=== PATIENT | male | born 1950 | race Caucasian/White ===

== ENCOUNTER → 2017-02-03 | Outpatient (CLI) | payer OTHER ==
[~2017-02-03] MED LIST: BUPIVACAINE MPF 0.25% 10 ML VIAL. ONE; IV NORMAL SALINE 250ML 250 ML ONE; LIDOCAINE 1% PF 30 ML VIAL. ONE; MIDAZOLAM HCL 2 MG/2 ML VIAL. ONE; fentaNYL PF 100 MCG/2 ML VIAL ONE; methylPREDNISolone ACETATE 40 MG/ML VIAL. ONE
== END | disposition home or self-care (01) ==
LOC: SURG 12:59
PROVIDERS: ATTEND Anesthesiology Pain Medicine
DX: M47.816 Spondylosis without myelopathy or radiculopathy, lumbar region (principal); E11.9 Type 2 diabetes mellitus without complications; K21.9 Gastro-esophageal reflux disease without esophagitis; Z98.890 Other specified postprocedural states
CPT/HCPCS: 64635; 64636; 82947; J1030; J2001; J2250; J3010; J3490; J7050

== ENCOUNTER → 2017-02-24 | Outpatient (CLI) | payer OTHER ==
[~2017-02-24] MED LIST changes: -IV NORMAL SALINE 250ML 250 ML ONE; +IV RINGERS SOLUTION,LACTATED 1,000 ML IV ONE; -MIDAZOLAM HCL 2 MG/2 ML VIAL. ONE; +MIDAZOLAM HCL PF 2 MG/2 ML VIAL. ONE; -fentaNYL PF 100 MCG/2 ML VIAL ONE
== END | disposition home or self-care (01) ==
LOC: SURG 12:33
PROVIDERS: ATTEND Anesthesiology Pain Medicine
DX: M47.816 Spondylosis without myelopathy or radiculopathy, lumbar region (principal)
CPT/HCPCS: 64635; 64636; 82947; J1030; J2001; J2250; J3010; J3490; J7120; 99152

== ENCOUNTER → 2018-02-02 | Outpatient (CLI) | payer OTHER ==
[~2018-02-02] MED LIST changes: -BUPIVACAINE MPF 0.25% 10 ML VIAL. ONE; +BUPIVACAINE MPF 0.5% 30 ML VIAL. ONE; +IOHEXOL 300 MG/ML 50 ML VIAL. ONE; -IV RINGERS SOLUTION,LACTATED 1,000 ML IV ONE; -MIDAZOLAM HCL PF 2 MG/2 ML VIAL. ONE
== END | disposition home or self-care (01) ==
LOC: SURG 08:32
PROVIDERS: ATTEND Anesthesiology Pain Medicine
DX: M17.0 Bilateral primary osteoarthritis of knee (principal); E11.9 Type 2 diabetes mellitus without complications; Z87.01 Personal history of pneumonia (recurrent); M47.816 Spondylosis without myelopathy or radiculopathy, lumbar region; Z79.899 Other long term (current) drug therapy; Z90.49 Acquired absence of other specified parts of digestive tract; Z79.84 Long term (current) use of oral hypoglycemic drugs
CPT/HCPCS: 20610; 77002; J1030; J2001; J3490; 20611; Q9967

== ENCOUNTER → 2018-02-09 | Outpatient (CLI) | payer OTHER ==
--- NOTE | 2018-02-09 13:39 | RAD ---
EXAM: Bilateral knees, 3 views. HISTORY: Pain. COMPARISON: None. FINDINGS: 3 views of the bilateral knees are obtained. There is medial compartment joint space narrowing with subchondral sclerosis and marginal spurring involving the left knee. There is mild bilateral lateral and right medial compartment and bilateral patellofemoral compartment spurring. There is no fracture, dislocation or subluxation. There is no significant joint effusion. There may be left genu varus. IMPRESSION: 1. Moderate left medial and mild right medial and bilateral lateral and patellofemoral compartment osteoarthritis. 2. No acute osseous finding. Electronically signed by: Felicitas Recio MD (02/09/2018 1:35 PM) [id number]
--- NOTE | 2018-02-09 16:01 | RAD ---
Pelvis with both hips, 3 views, 02/09/2018: HISTORY: Hip pain No fracture or dislocation is identified. The hip joint spaces are fairly well preserved with only minimal marginal spurring. There is a small degenerative type cyst along the left acetabular roof laterally. There are small sclerotic foci in the right femoral neck and at the level of the right lesser trochanter. IMPRESSION: 1. No acute bony abnormality is detected. 2. Sclerotic foci in the proximal right femur are most likely bone islands. Blastic osseous metastatic disease cannot be excluded. Electronically signed by: Pablo Leal MD (02/09/2018 3:57 PM) [facility]
== END | disposition home or self-care (01) ==
LOC: DXRAD 10:35
PROVIDERS: ATTEND Anesthesiology Pain Medicine
DX: M17.0 Bilateral primary osteoarthritis of knee (principal); E11.9 Type 2 diabetes mellitus without complications; K21.9 Gastro-esophageal reflux disease without esophagitis; Z79.84 Long term (current) use of oral hypoglycemic drugs; Z79.899 Other long term (current) drug therapy; Z90.49 Acquired absence of other specified parts of digestive tract
CPT/HCPCS: 73521; 73562

== ENCOUNTER → 2018-03-09 | Outpatient (CLI) | payer OTHER ==
[~2018-03-09] MED LIST changes: +ALBU8.5H8 INH; +ASCO500T3 PO; -BUPIVACAINE MPF 0.5% 30 ML VIAL. ONE; +CYPR4TAB31 PO; +DICL100G18 TP; +FERR325T14 PO; +GABA-586 PO; -IOHEXOL 300 MG/ML 50 ML VIAL. ONE; +LEVO500T59 PO; -LIDOCAINE 1% PF 30 ML VIAL. ONE; +METF500T16 PO; +MOME45OI2 TP; +OCTR100D IJ; +OMEP40CA5 PO; +PRAM15FO2 TP; +TAMS0.4C2 PO; +TRAM50TA PO; +[UNRECOGNIZED DRUG - CODE] SQ; -methylPREDNISolone ACETATE 40 MG/ML VIAL. ONE
== END | disposition home or self-care (01) ==
LOC: SURG 13:33
PROVIDERS: ATTEND Anesthesiology Pain Medicine
DX: M25.561 Pain in right knee (principal); M25.562 Pain in left knee; M54.5 Low back pain
CPT/HCPCS: 99214

== ENCOUNTER 2018-03-28 10:06 | Inpatient (IN) | payer MEDICARE, OTHER ==
[~2018-03-28] VITALS: Ht 182.9 cm; Wt 100.2 kg
[2018-03-28 12:35] VITALS: BP 109/62
[2018-03-28 15:00] VITALS: BP 121/67
[2018-03-28] MEDS: ACETAMINOPHEN 325 MG TABLET PO PRN ×2 (16:13→21:28)
[2018-03-28] MEDS ORDERED: ALBUTEROL SULFATE 8GM INHALER. INH PRN (17:00)
[2018-03-28] MEDS ORDERED: LANREOTIDE SQ SCH (17:00)
--- NOTE | 2018-03-28 17:06 | HP ---
ADMIT DATE: 03/28/2018 HISTORY OF PRESENT ILLNESS: The patient is a 67-year-old male patient who was seen at the Emergency Room of [facility] where he was diagnosed with community-acquired pneumonia, however, they have no beds available and he was admitted directly to our hospital to continue treatment with IV antibiotic. On questioning him, he stated that he has been feeling weak and tired for the last 2 weeks. 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 He also complained of cough with phlegm. He had had fever and shortness of breath. He was evaluated in the Emergency Room of [facility] where apparently he was found to be febrile and his chest x-ray showed that lungs and pleura showed ill-defined heterogenous and somewhat confluent opacity in the perihilar right mid lung zone, minimal heterogenous opacities in the infrahilar right lung, lungs otherwise are essentially clear. There is asymmetric prominence of the right hilum that could relate to lymphadenopathy or mass. No pleural effusion or pneumothorax. Heart and mediastinum, the cardiomediastinal silhouette is within normal limits in size and configuration and grossly unchanged allowing for difference in technique and the patient positioning. From prior studies, bones showed no osseous abnormality. He was given a dose of IV levofloxacin, given IV fluid and was transferred to our facility to continue with inpatient antibiotic therapy. PAST MEDICAL HISTORY: Significant for type 2 diabetes mellitus for which he is on metformin. 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 Other medical problems include splenic artery aneurysm, partial small obstruction. 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 PAST SURGICAL HISTORY: Significant for appendectomy, cholecystectomy, squamous cell carcinoma resections in the right little finger, has also esophagogastroduodenoscopy and colonoscopy. ALLERGIES: He has no known drug allergies. MEDICATIONS: He is currently on following medications: He is on Somatuline 120 mg 0.5 mL intramuscular monthly. He is on Meloxicam 15 mg once a day, metformin 500 mg 1 tablet twice a day with meals. He is on octreotide 100 mcg/mL injection twice a day. He is on Prilosec 40 mg once a day and simvastatin (Lipitor) 20 mg intramuscular injection. He is on tamsulosin for Flomax 0.4 mg at bedtime and Ultra comfort insulin syringe. He is on Voltaren 1% gel applied topically 4 times a day. FAMILY HISTORY: Significant for hypertension and coronary artery disease in his father who at age of 74 because of stroke. His mother at the age of 67 because of breast cancer. He has 1 younger brother who has glaucoma. His maternal aunt has ovarian cancer. SOCIAL HISTORY: He apparently is , has a son and a daughter. He is a former smoker, quit in 1979. He used to smoke cigars, cigarettes and pipes and even chewed tobacco. He quit drinking alcohol years ago. Does not use any drugs. REVIEW OF SYSTEMS: The patient denied any blurring of vision, cataract, glaucoma or macular degeneration. Denied any earache, tinnitus or sensorineural deafness. Denied any nosebleeds, stuffy nose or postnasal drip. Denied any sore throat, sore tongue, toothache, hoarseness of voice or difficulty swallowing. Denied any nausea or vomiting. Did complain of recurrent bouts of diarrhea because of carcinoid syndrome. He denied any hematemesis, melena or hematochezia. Did complain of polyuria, but denied any dysuria or hematuria. He did complain of nocturia once or twice. Did complain of chest pain, shortness of breath, and cough, but denied any orthopnea or paroxysmal nocturnal dyspnea. He did complain of fever. Denied any dizziness, lightheadedness, or vertigo. PHYSICAL EXAMINATION: GENERAL: When I examined him, he looked somewhat pale, but not jaundiced or cyanosed. No lymphadenopathy, no thyromegaly. No jugular venous distension. No lower limb edema. VITAL SIGNS: His heart rate on arrival to [facility] was 96 beats per minute. Blood pressure was 109/62, temperature was 98.2, respiratory rate was 18 and oxygen saturation was 93%. HEAD, EYES, EARS, NOSE AND THROAT: Showed normocephalic, atraumatic. NECK: Supple. HEART: Showed normal first and second heart sounds. No gallop, rub or murmur. CHEST: Clear to auscultation. No crepitation or rhonchi. ABDOMEN: Distended, soft, nontender. No guarding or rigidity. No organomegaly. All hernial orifices intact. Bowel sounds normal. NEUROLOGIC: He was awake, alert, responding appropriately. All his cranial nerves are intact. EXTREMITIES: He moves extremities without difficulty. He normally ambulates without difficulty, although has been complaining of weakness and has fallen twice, one last one Monday and one early this morning. Apparently, on arrival to [facility] in [place], temperature was up to 38 degrees centigrade. LABORATORY AND DIAGNOSTIC DATA: His lab work done at [facility] showed that his white cell count was 3790, his hemoglobin was 7.7, hematocrit was 25, MCV was 84 and platelet count of 168,000, manual differential showed 85% polymorphs, 8% lymphocytes and 5% monocytes. Serum sodium was 132, potassium 3.8, chloride 104, bicarbonate 19, anion gap of 10, calcium was 8.4, glucose 152. His total protein was 11.3, albumin was 3.5. His total bilirubin, AST, ALT, alkaline phosphatase were normal. His serum creatinine was 1.4, estimated GFR was 51 mL per minute. His lipase was 57, lactic acid was 2.2. Beta natriuretic peptide was 193. His troponin was less than 0.017. The influenza A and B were negative. His fecal occult blood was negative and his chest x-ray showed that he has right perihilar, right infrahilar airspace disease with possible early consolidation. Findings are likely pneumonia, consolidation adults must be followed to complete radiographic resolution to exclude underlying malignancy. PLAN: Continue with all his medication. Continue with IV Levaquin. We will monitor his labs and we will send urine for legionella/pneumococcal antigen and we will contact Dr. Cruz's office as he apparently is scheduled for some form of diagnostic test this Monday. VIDHYA WHITE MD DR: JENNIFER/joyce JOB#: [id number] / [id number]
[2018-03-28] MEDS ORDERED: OCTR100D IJ (17:27)
[2018-03-28] MEDS ORDERED: DICL100G18 TP (17:27)
[2018-03-28] MEDS ORDERED: ALBU8.5H8 INH (17:27)
[2018-03-28] MEDS ORDERED: [UNRECOGNIZED DRUG - CODE] SQ (17:27)
[2018-03-28] MEDS ORDERED: OMEP40CA5 PO (17:27)
[2018-03-28] MEDS ORDERED: METF500T16 PO (17:27)
[2018-03-28] MEDS ORDERED: PRAM15FO2 TP (17:27)
[2018-03-28] MEDS ORDERED: TAMS0.4C2 PO (17:27)
[2018-03-28] MEDS ORDERED: MOME45OI2 TP (17:27)
[2018-03-28] MEDS ORDERED: CYPR4TAB31 PO (17:27)
[2018-03-28] MEDS ORDERED: GABA-586 PO (17:27)
[2018-03-28] MEDS ORDERED: TRAM50TA PO (17:53)
[2018-03-28] MEDS ORDERED: traMADol 50 MG TABLET PO PRN (18:00)
[2018-03-28 19:03] VITALS: BP 111/67
[2018-03-28 20:00] VITALS: BP 122/55
[2018-03-28] MEDS: PRAMOXINE 1% RECTAL FOAM 15GM CAN. TP SCH (21:00)
[2018-03-28] MEDS ORDERED: OCTREOTIDE ACETATE IJ SCH (21:00)
[2018-03-28] MEDS: CYPROHEPTADINE 4 MG TABLET. PO SCH (21:21)
[2018-03-28] MEDS: TAMSULOSIN 0.4 MG CAP.ER.24H. PO SCH (21:21)
[2018-03-28] MEDS: GABAPENTIN 300 MG CAPSULE. PO SCH (21:21)
[2018-03-28] MEDS: TRIAMCINOLONE ACETONIDE 0.1% TOPICAL CREAM 15GM TUBE. TP SCH (21:22)
[2018-03-28] MEDS: DICLOFENAC SODIUM 1% TOPICAL GEL 100GM TUBE. TP SCH (21:23)
[2018-03-28 23:00] VITALS: BP 114/63
[2018-03-29 03:00] VITALS: BP 136/63
[2018-03-29] MEDS: OCTREOTIDE 100 MCG/ML VIAL SQ SCH ×2 (05:05→16:54)
[2018-03-29] MEDS: ACETAMINOPHEN 325 MG TABLET PO PRN ×2 (05:11→14:25)
[2018-03-29 06:13] LABS: HEMATOCRIT 23.2 % (39.0-53.0); HEMOGLOBIN 7.6 g/dL (13.0-17.5); RED BLOOD COUNT 2.86 x10^6/uL (4.30-5.70); RED CELL DISTRIBUTION WIDTH 17.7 % (11.5-14.5); WHITE BLOOD COUNT 7.4 x10^3/uL (4.0-11.0)
[2018-03-29 06:23] LABS: ALBUMIN 1.8 g/dL (3.4-5.0); ALBUMIN/GLOBULIN RATIO 0.2 (1.0-1.7); CREATININE 1.6 mg/dL (0.7-1.3); GFR 43.3; POTASSIUM 3.9 mmol/L (3.5-5.1); TOTAL BILIRUBIN 0.6 mg/dL (0.2-1.0); TOTAL PROTEIN 10.4 g/dL (6.4-8.2)
[2018-03-29] MEDS: PANTOPRAZOLE 40 MG TABLET. PO SCH (07:20)
[2018-03-29] MEDS: metFORMIN 500 MG TABLET PO SCH ×2 (08:10→16:53)
[2018-03-29] MEDS: TAMSULOSIN 0.4 MG CAP.ER.24H. PO SCH ×2 (08:33→21:24)
[2018-03-29] MEDS: DICLOFENAC SODIUM 1% TOPICAL GEL 100GM TUBE. TP SCH ×3 (08:33→21:00)
[2018-03-29] MEDS: CYPROHEPTADINE 4 MG TABLET. PO SCH ×2 (08:33→21:24)
[2018-03-29] MEDS: GABAPENTIN 300 MG CAPSULE. PO SCH ×3 (08:33→21:24)
[2018-03-29] MEDS: TRIAMCINOLONE ACETONIDE 0.1% TOPICAL CREAM 15GM TUBE. TP SCH ×3 (08:34→21:24)
[2018-03-29] MEDS: PRAMOXINE 1% RECTAL FOAM 15GM CAN. TP SCH ×2 (08:34→21:00)
[2018-03-29 10:47] VITALS: BP 157/66
[2018-03-29] MEDS: IV NORMAL SALINE 1,000ML 1,000 ML IV SCH ×2 (11:17→21:37)
[2018-03-29 14:27] VITALS: BP 132/56
[2018-03-29] MEDS ORDERED: IRON SUCROSE COMPLEX 200 MG in IV NORMAL SALINE 100ML 100 ML IV ONE (17:00)
[2018-03-29 18:32] LABS: HEMATOCRIT 24.9 % (39.0-53.0); HEMOGLOBIN 8.1 g/dL (13.0-17.5)
[2018-03-29 18:36] VITALS: BP 130/81
[2018-03-29 18:38] LABS: CALCIUM 8.4 mg/dL (8.5-10.1); CREATININE 1.6 mg/dL (0.7-1.3); GFR 43.3; POTASSIUM 3.7 mmol/L (3.5-5.1)
--- NOTE | 2018-03-29 19:42 | PN ---
DATE: 03/29/2018 SUBJECTIVE: The patient is sitting on the edge of the bed comfortably in no apparent distress. He stated he continued to have cough, but generally feeling much better today than yesterday. His white cell count is 7400; however, his hemoglobin and hematocrit are low. In fact, yesterday, it was 7.7 and the hematocrit was 25, MCV was 84 and today, the MCV was 81. His chemistry unfortunately showed that he has hyponatremia, sodium came down from 130 to 127. His creatinine also has risen slightly from 1.4-1.6. PHYSICAL EXAMINATION: GENERAL: When I examined him, he looked pale, but no jaundice or cyanosis. No lymphadenopathy. No thyromegaly. No jugular venous distension. No lower limb edema. VITAL SIGNS: His heart rate was 81, blood pressure was 136/63, temperature was 99.8, respiratory rate was 18 and oxygen saturation was 97%. HEAD, EYES, EARS, NOSE AND THROAT: Showed normocephalic and atraumatic. NECK: Supple. HEART: Showed normal first and second heart sounds with no gallop, rub or murmur. CHEST: Shows central trachea, equal bilateral expansion, air entry, vesicular sounds with crepitation, more on the right side. I could not appreciate any rhonchi. ABDOMEN: Distended, soft, and nontender. No guarding or rigidity. No organomegaly. All hernial orifices intact. Bowel sounds normal. NEUROLOGIC: He was awake, alert, and responding appropriately. Cranial nerves intact. He moves extremities without difficulty. INS AND OUTS: His intake over the last 24 hours was 1600, no output was recorded. LABORATORY DATA: As of this morning, his serum sodium was 127, potassium 3.9, chloride 97, bicarbonate 23, anion gap of 7, BUN 18, creatinine 1.6, estimated GFR was 43 mL per minute. His glucose was 99, calcium was 8. Total bilirubin, AST, ALT, alkaline phosphatase were normal. His total protein was 10.4 and albumin was 1.8. His white cell count was 7400, hemoglobin 7.6, hematocrit 23.2, MCV 81 and platelet count of 155,000. ASSESSMENT: 1. Community-acquired pneumonia for which he is on IV levofloxacin 750 mg IV daily. 2. Hyponatremia, worsening. His sodium is down from 130-127, normochromic normocytic anemia with a hemoglobin of 7.7 and hematocrit 24. However, his white cell count and platelets are normal. The patient is known to have type 2 diabetes mellitus for which he is on metformin. He is also known to have carcinoid tumor diagnosed after he has been appendectomy. 3. Splenic artery aneurysm. 4. Partial small-bowel obstruction. 5. Squamous cell carcinoma of his right finger, status post Mohs surgery. PLAN: My plan is to start him on IV fluid in the form of normal saline at 100 mL per hour and monitor his serum sodium. We will continue with IV antibiotic and continue with all his other medications. I would also check his all hematinics and thus, I will talk to . ____, who is apparently a world-renowned expert on carcinoid tumor. VIDHYA WHITE MD DR: JENNIFER/joyce JOB#: [id number] / [id number]
[2018-03-29] MEDS: LACTOBACILLUS RHAMNOSUS GG 1 CAPSULE. PO SCH (21:24)
[2018-03-29] MEDS: ALBUTEROL SULFATE 2.5 MG/3 ML NEBU. NEB PRN (21:33)
[2018-03-29 22:21] VITALS: BP 128/68
[2018-03-30] MEDS: OCTREOTIDE 100 MCG/ML VIAL SQ SCH ×2 (04:59→16:39)
[2018-03-30 05:08] VITALS: BP 121/76
[2018-03-30] MEDS: PANTOPRAZOLE 40 MG TABLET. PO SCH (07:26)
[2018-03-30] MEDS: metFORMIN 500 MG TABLET PO SCH ×2 (08:03→16:39)
[2018-03-30] MEDS: IV NORMAL SALINE 1,000ML 1,000 ML IV SCH ×2 (08:27→20:57)
[2018-03-30] MEDS: TAMSULOSIN 0.4 MG CAP.ER.24H. PO SCH ×2 (08:29→20:37)
[2018-03-30] MEDS: CYANOCOBALAMIN (VITAMIN B-12) 1,000 MCG/ML VIAL IM SCH (08:29)
[2018-03-30] MEDS: GABAPENTIN 300 MG CAPSULE. PO SCH ×3 (08:29→20:37)
[2018-03-30] MEDS: LACTOBACILLUS RHAMNOSUS GG 1 CAPSULE. PO SCH ×2 (08:29→20:37)
[2018-03-30] MEDS: ACETAMINOPHEN 325 MG TABLET PO PRN ×2 (08:29→20:37)
[2018-03-30] MEDS: CYPROHEPTADINE 4 MG TABLET. PO SCH ×2 (08:30→20:37)
[2018-03-30] MEDS: DICLOFENAC SODIUM 1% TOPICAL GEL 100GM TUBE. TP SCH ×2 (08:43→20:41)
[2018-03-30] MEDS: PRAMOXINE 1% RECTAL FOAM 15GM CAN. TP SCH ×2 (08:43→20:41)
[2018-03-30] MEDS: TRIAMCINOLONE ACETONIDE 0.1% TOPICAL CREAM 15GM TUBE. TP SCH ×2 (08:43→20:41)
[2018-03-30 11:18] VITALS: BP 138/65
[2018-03-30] MEDS ORDERED: IRON SUCROSE COMPLEX 500 MG in IV NORMAL SALINE 250ML 250 ML IV ONE (12:30)
[2018-03-30 12:55] LABS: CALCIUM 8.2 mg/dL (8.5-10.1); CREATININE 1.4 mg/dL (0.7-1.3); GFR 50.5; POTASSIUM 3.7 mmol/L (3.5-5.1)
--- NOTE | 2018-03-30 14:31 | RAD ---
CT of the abdomen and pelvis without contrast, 03/30/2018: HISTORY: Right flank pain Noncontrast scans were obtained utilizing the renal stone protocol. A single tiny radiopacity is noted in the lower pole the right kidney compatible with a nonobstructing calculus. The renal collecting systems and ureters are not dilated. No ureteral calculus is evident. The partially filled urinary bladder is unremarkable. There is mild reticular and tree-in-bud type infiltrate posteriorly in the right lung base, raising possibility of pneumonia. No pleural fluid is evident. There are granulomatous calcifications in the liver and spleen. The unopacified liver is otherwise unremarkable. The gallbladder is surgically absent. No pancreatic abnormality is seen. A 1.6 cm rim-like calcification near the splenic hilum is compatible with a small splenic artery aneurysm. The abdominal aorta is of normal caliber. No abdominal or pelvic adenopathy is seen. The prostate gland is at the upper limits of normal in size. Colonic diverticula are present, most numerous in the sigmoid region. No paracolonic inflammatory process is seen. The bowel loops are not dilated. There are findings of a previous partial colon resection involving the ascending colon with surgical sutures evident. There is a small hiatal hernia. No free fluid or free air is evident in the abdomen or pelvis. Moderate multilevel degenerative changes are present in the lumbar spine. IMPRESSION: 1. Single tiny nonobstructing right intrarenal calculus. 2. No obstructing urinary tract calculus is identified. 3. Mild right basilar infiltrate suggesting pneumonia. 4. Sigmoid diverticulosis. 5. Additional chronic miscellaneous findings as instructed above. PQRS Compliance Statement: One or more of the following individualized dose reduction techniques were utilized for this examination: 1. Automated exposure control 2. Adjustment of the mA and/or kV according to patient size 3. Use of iterative reconstruction technique Electronically signed by: Pablo Leal MD (03/30/2018 2:28 PM) [facility]
[2018-03-30 15:40] VITALS: BP 139/64
[2018-03-30 19:10] VITALS: BP 131/70
[2018-03-30] MEDS: ALBUTEROL SULFATE 2.5 MG/3 ML NEBU. NEB PRN (20:57)
[2018-03-30 22:54] VITALS: BP 111/56
--- NOTE | 2018-03-30 23:05 | PN ---
DATE: 03/30/2018 SUBJECTIVE: The patient is a 67-year-old male patient who was admitted as a transfer from [facility] Emergency Room for treatment of his pneumonia. Further investigation here showed that he has also hyponatremia and iron-deficiency anemia as well as vitamin B12 deficiency. We did start him on IV levofloxacin as well as Venofer and vitamin B12 injection. When I saw him today, he looked well, has been complaining of pain in his right flank area. Denied any chills, rigors, or fever. PHYSICAL EXAMINATION: GENERAL: When I examined him, he looked somewhat pale, but not jaundiced or cyanosed. No lymphadenopathy, no thyromegaly. No jugular venous distension. No lower limb edema. VITAL SIGNS: His heart rate was 72, blood pressure was 121/76, temperature was 98.3, respiratory rate was 18, and oxygen saturation was 95%. HEAD, EYES, EARS, NOSE AND THROAT: Showed normocephalic, atraumatic. NECK: Supple. HEART: Showed normal first and second sounds. No gallop, rub, or murmur. CHEST: Clear to auscultation. No crepitation or rhonchi. ABDOMEN: Distended, soft, nontender. NEUROLOGIC: He was awake, alert, responding appropriately. All cranial nerves are intact. He moves extremities without difficulty, ambulates without assistance or assistive devices. His intake over the last 24 hours was 1600, no output was recorded. LABORATORY DATA: His most recent lab work showed a serum sodium of 126, potassium 3.7, chloride 97, bicarbonate 23, anion gap of 6, BUN 19, creatinine 1.6. Estimated GFR was 43 mL per minute. His glucose was 152, calcium was 8.4. His hemoglobin was 8.1, hematocrit 24.9. ASSESSMENT: Community-acquired pneumonia, to continue with IV levofloxacin 750 mg every 48 hours. Type 2 diabetes mellitus, reasonably controlled on metformin. Iron deficiency, to continue with Venofer. Benign prostatic hypertrophy. We will continue with another dose of Venofer IV 500 mg. Continue with vitamin B12 injection. Continue with IV levofloxacin. I will arrange for him to have a CT scan of the abdomen and pelvis without contrast. He is complaining of right-sided flank pain around the renal angle. To make sure that he does not have any obstructive stones. VIDHYA WHITE MD DR: Steve JOB#: [id number] / [id number]
[2018-03-31] VITALS (9 sets, daily range): BP systolic 115–151; BP diastolic 61–79
[2018-03-31] MEDS: IV NORMAL SALINE 1,000ML 1,000 ML IV SCH ×3 (06:03→23:15)
[2018-03-31] MEDS: OCTREOTIDE 100 MCG/ML VIAL SQ SCH ×2 (06:03→18:12)
[2018-03-31 06:37] LABS: RED BLOOD COUNT 2.42 x10^6/uL (4.30-5.70); RED CELL DISTRIBUTION WIDTH 17.7 % (11.5-14.5); WHITE BLOOD COUNT 5.7 x10^3/uL (4.0-11.0)
[2018-03-31 06:42] LABS: HEMOGLOBIN 6.4 g/dL (13.0-17.5)
[2018-03-31 06:43] LABS: HEMATOCRIT 19.3 % (39.0-53.0)
[2018-03-31 06:52] LABS: ALBUMIN 1.6 g/dL (3.4-5.0); ALBUMIN/GLOBULIN RATIO 0.2 (1.0-1.7); CALCIUM 7.8 mg/dL (8.5-10.1); CREATININE 1.3 mg/dL (0.7-1.3); GFR 55.1; POTASSIUM 3.8 mmol/L (3.5-5.1); TOTAL BILIRUBIN 0.2 mg/dL (0.2-1.0); TOTAL PROTEIN 9.4 g/dL (6.4-8.2)
[2018-03-31] MEDS: metFORMIN 500 MG TABLET PO SCH ×2 (08:30→18:06)
[2018-03-31] MEDS: LACTOBACILLUS RHAMNOSUS GG 1 CAPSULE. PO SCH ×2 (08:30→21:02)
[2018-03-31] MEDS: PANTOPRAZOLE 40 MG TABLET. PO SCH (08:30)
[2018-03-31] MEDS: GABAPENTIN 300 MG CAPSULE. PO SCH ×3 (08:30→21:02)
[2018-03-31] MEDS: TAMSULOSIN 0.4 MG CAP.ER.24H. PO SCH ×2 (08:30→21:02)
[2018-03-31] MEDS: CYANOCOBALAMIN (VITAMIN B-12) 1,000 MCG/ML VIAL IM SCH (08:30)
[2018-03-31] MEDS: CYPROHEPTADINE 4 MG TABLET. PO SCH ×2 (08:31→21:02)
[2018-03-31] MEDS: PRAMOXINE 1% RECTAL FOAM 15GM CAN. TP SCH ×2 (08:31→21:00)
[2018-03-31] MEDS: TRIAMCINOLONE ACETONIDE 0.1% TOPICAL CREAM 15GM TUBE. TP SCH ×2 (08:32→21:00)
[2018-03-31] MEDS: ACETAMINOPHEN 325 MG TABLET PO PRN ×2 (08:38→21:02)
[2018-03-31] MEDS: DICLOFENAC SODIUM 1% TOPICAL GEL 100GM TUBE. TP SCH ×2 (09:00→21:00)
[2018-03-31 14:38] LABS: FECAL OB PT POSITIVE (NEG)
--- NOTE | 2018-03-31 15:34 | PN ---
DATE: 03/31/2018 SUBJECTIVE: The patient is resting, slightly propped up in bed, in no apparent distress. On questioning him, he denied any complaint. The nursing staff did not voice any concern and stated that he had an uneventful night; however, his lab work showed that his hemoglobin and hematocrit has dropped down to 6.4 and 19.3. However, his chemistry showed his sodium up to 132, potassium 3.8. His BUN and creatinine are down to 13 and 1.3. We did type and cross and transfuse him 1 unit of packed RBCs. PHYSICAL EXAMINATION: GENERAL: When the time I saw him, he looked well and was clearly in no apparent respiratory distress, pale, but no jaundice, cyanosis, or thyromegaly. No jugular venous distention. No limb edema. VITAL SIGNS: His heart rate was 71, blood pressure 139/67, temperature was 98.2, respiratory rate was 18 and oxygen was 94%. HEAD, EYES, EARS, NOSE AND THROAT: Normocephalic, atraumatic. NECK: Supple. HEART: Showed normal first and second heart sounds with no gallop, rub or murmur. CHEST: Clear to auscultation. No crepitation or rhonchi. ABDOMEN: Distended, soft, nontender. No guarding or rigidity. No organomegaly. Hernial orifice intact. Bowel sounds normal. NEUROLOGIC: He is awake, alert, responding appropriately. All cranial nerves are intact. He moves extremities without difficulty. He ambulates without assistance or assistive devices. His intake over the last 24 hours was 3290 and output was 775. LABORATORY DATA: As of this morning, his serum sodium was 132, potassium 3.8, chloride 102, bicarbonate 21, anion gap of 9, BUN 13, creatinine 1.3, estimated GFR was 55 mL per minute, his glucose 104, calcium was 7.9. Total bilirubin, AST, ALT, alkaline phosphatase were normal. Total protein was 9.4, albumin was 1.6. His white cell count was 5700, hemoglobin 9.4, hematocrit 19.3, MCV 80 and platelet count of 153,000. ASSESSMENT: 1. Community-acquired pneumonia for which he continues to be on IV Rocephin and Zithromax. 2. Type 2 diabetes, reasonably controlled with Metformin. 3. Iron deficiency anemia, for which he continues to be on IV Venofer. We will arrange for him. He did receive 1 unit of packed RBCs. He also received also Venofer twice. 4. Benign prostatic hypertrophy, hyponatremia, resolving. His serum sodium went up from 126 to 132. PLAN: My plan is to continue with IV antibiotic for today and repeat all his labs tomorrow and if his H and H remained stable. He can be discharged home to continue on oral antibiotic as an outpatient. VIDHYA WHITE MD DR: JENNIFER/joyce JOB#: [id number] / [id number]
[2018-03-31 16:38] LABS: HEMATOCRIT 22.9 % (39.0-53.0); HEMOGLOBIN 7.4 g/dL (13.0-17.5)
[2018-03-31] MEDS: ALBUTEROL SULFATE 2.5 MG/3 ML NEBU. NEB PRN (21:02)
[2018-04-01] MEDS: IV NORMAL SALINE 1,000ML 1,000 ML IV SCH (03:03)
[2018-04-01] MEDS: OCTREOTIDE 100 MCG/ML VIAL SQ SCH (05:21)
[2018-04-01 06:03] VITALS: BP 149/73
[2018-04-01 07:01] LABS: HEMATOCRIT 23.6 % (39.0-53.0); HEMOGLOBIN 7.7 g/dL (13.0-17.5); RED BLOOD COUNT 2.89 x10^6/uL (4.30-5.70); WHITE BLOOD COUNT 5.7 x10^3/uL (4.0-11.0)
[2018-04-01 07:07] LABS: CREATININE 1.3 mg/dL (0.7-1.3); GFR 55.1; POTASSIUM 3.6 mmol/L (3.5-5.1)
[2018-04-01] MEDS: ACETAMINOPHEN 325 MG TABLET PO PRN (07:37)
[2018-04-01] MEDS: PRAMOXINE 1% RECTAL FOAM 15GM CAN. TP SCH (09:00)
[2018-04-01] MEDS: metFORMIN 500 MG TABLET PO SCH (09:00)
[2018-04-01] MEDS: CYANOCOBALAMIN (VITAMIN B-12) 1,000 MCG/ML VIAL IM SCH (09:00)
[2018-04-01] MEDS: PANTOPRAZOLE 40 MG TABLET. PO SCH (09:01)
[2018-04-01] MEDS: TAMSULOSIN 0.4 MG CAP.ER.24H. PO SCH (09:01)
[2018-04-01] MEDS: GABAPENTIN 300 MG CAPSULE. PO SCH (09:01)
[2018-04-01] MEDS: LACTOBACILLUS RHAMNOSUS GG 1 CAPSULE. PO SCH (09:01)
[2018-04-01] MEDS: CYPROHEPTADINE 4 MG TABLET. PO SCH (09:02)
[2018-04-01] MEDS: TRIAMCINOLONE ACETONIDE 0.1% TOPICAL CREAM 15GM TUBE. TP SCH (09:02)
[2018-04-01] MEDS: DICLOFENAC SODIUM 1% TOPICAL GEL 100GM TUBE. TP SCH (09:02)
[2018-04-01] MEDS ORDERED: FERR325T14 PO (09:45)
[2018-04-01] MEDS ORDERED: LEVO500T59 PO (09:45)
[2018-04-01] MEDS ORDERED: ASCO500T3 PO (09:45)
--- NOTE | 2018-04-01 11:02 | DS ---
DATE OF DISCHARGE: 04/01/2018 HISTORY OF PRESENT ILLNESS: The patient is a 67-year-old male patient, who came with complaining of generalized weakness, cough, and shortness of breath, feeling very tired for the last 2 weeks. 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 He was evaluated initially at [facility] where he was diagnosed with community-acquired pneumonia and as they have no beds, he was admitted directly to our hospital where further investigation showed that he has iron deficiency anemia. In fact, he has also hyponatremia and vitamin B12 deficiency. He was treated with IV levofloxacin and did well from that point of view. His white cell count is down. His serum sodium was down to 126, improved to 130. His H and H has dropped down to 6.4 and 19.3, so received 1 unit of packed RBCs. He received multiple injections of vitamin B12 as well as Venofer twice IV. He was also followed for his carcinoid tumor by Dr. Mckeon at [place], who recommended PET scan that we arranged for him to be done at the [facility]. His stools came positive for occult blood and as he remained stable hemodynamically, afebrile with normal white cell count, a decision was made to discharge him home to follow with his primary care physician, Dr. Donovan. PHYSICAL EXAMINATION: GENERAL: When I examined him today, he looked well and was clearly in no apparent respiratory distress, pale, but no jaundice, cyanosis, or thyromegaly. No jugular venous distention. No limb edema. VITAL SIGNS: His heart rate was 69, blood pressure was 149/73, temperature was 99.3, respiratory rate was 18 and oxygen saturation was 94% on room air. HEAD, EYES, EARS, NOSE AND THROAT: Showed normocephalic, atraumatic. NECK: Supple. HEART: Showed normal first and second heart sounds with no gallop, rub or murmur. CHEST: Clear to auscultation. No crepitation or rhonchi. ABDOMEN: Distended, soft, nontender. No guarding or rigidity. No organomegaly. All hernial orifice intact. Bowel sounds normal. NEUROLOGIC: He is awake, alert, responding appropriately, at times intact. He moves extremities without difficulty, ambulates without assistance or assistive devices. His intake over the last 24 hours was 4300, no output was recorded. His lab work as of this morning showed a white cell count 5700, hemoglobin 7.7, hematocrit was 23.6, MCV 82 and platelet count of 175,000. His chemistry showed a serum sodium 130, potassium 3.6, chloride 99, bicarbonate 21, anion gap of 10, BUN 11, creatinine 1.3, estimated GFR was 55 mL per minute, his glucose 126, calcium was 8. His stool for occult blood was positive. His urine legionella antigen was negative and urine Streptococcus pneumoniae antigen is still pending at the time of this dictation. DISCHARGE MEDICATIONS: He will be discharged home to continue on following medications: Ferrous sulfate 325 mg twice a day with food, ascorbic acid 500 mg twice a day, levofloxacin 500 mg once a day for 6 days. He should continue his albuterol sulfate 1 puff as needed every 6 hours, cyproheptadine 4 mg twice a day, gabapentin 300 mg 3 times a day, loperamide acetate, lanreotide acetate Somatuline depot 120 mg once a month, metformin 500 mg twice a day, mometasone furoate 45 grams ointment applied topically twice a day for rash, octreotide acetate 100 mcg intramuscular b.i.d., omeprazole 40 mg once a day, pramoxine cream applied topically twice a day, Flomax 0.4 mg at bedtime and tramadol 50 mg every 6 hours as needed. FINAL DISCHARGE DIAGNOSES: Community-acquired pneumonia. The blood culture is negative. Urine legionella antigen negative. Streptococcus pneumonia antigen is still pending. The patient will be discharged to continue treatment with oral levofloxacin for 6 more days. [id number] kidney injury, resolved. His creatinine has improved from 1.6 down to 1.3, hyponatremia improved from 126-130. The patient has severe iron deficiency anemia with serum iron 12, TIBC 210, iron saturation was 6 and serum ferritin was 85. Vitamin B12 deficiency with vitamin B12 was 296 picogram per mL. The patient is known to have carcinoid syndrome for which she discovered after his appendectomy and for which he underwent partial colectomy. The patient has positive stool for occult blood and will require upper and lower GI endoscopy to find the source of his bleeding. VIDHYA WHITE MD DR: JENNIFER/joyce JOB#: [id number] / [id number]
== END 2018-04-01 11:13 | disposition home or self-care (01) | DRG 871 ==
LOC: 1 SOUTH 12:23
PROVIDERS: ADMIT Internal Medicine; ATTEND Internal Medicine
PROC: 30233N1 Transfusion of Nonautologous Red Blood Cells into Peripheral Vein, Percutaneous Approach (ICD-10-PCS; principal; 2018-03-28)
DX: A41.9 Sepsis, unspecified organism (principal); J18.9 Pneumonia, unspecified organism; E34.0 Carcinoid syndrome; E87.1 Hypo-osmolality and hyponatremia; K56.600 Partial intestinal obstruction, unspecified as to cause; N17.9 Acute kidney failure, unspecified; D50.9 Iron deficiency anemia, unspecified; E11.22 Type 2 diabetes mellitus with diabetic chronic kidney disease; E53.8 Deficiency of other specified B group vitamins; I72.8 Aneurysm of other specified arteries; N18.9 Chronic kidney disease, unspecified; N40.0 Benign prostatic hyperplasia without lower urinary tract symptoms; R29.6 Repeated falls; Z80.3 Family history of malignant neoplasm of breast; Z80.41 Family history of malignant neoplasm of ovary; Z82.3 Family history of stroke; Z82.49 Family history of ischemic heart disease and other diseases of the circulatory system; Z87.891 Personal history of nicotine dependence
CPT/HCPCS: 36415; 74176; 80048; 80053; 82274; 82607; 82728; 82947; 83540; 83550; 85014; 85018; 85027; 86850; 86900; 86901; 86920; 87449; J1756; J1956; J2354; J3420; J7050; J7613; P9016; J7030

== ENCOUNTER → 2018-04-27 | Outpatient (CLI) | payer MEDICARE, OTHER ==
[2018-04-01 06:03] VITALS: BP 149/73
[~2018-04-27] MED LIST changes: +BUPIVACAINE MPF 0.25% 30 ML VIAL. ONE; +LIDOCAINE 1% PF 30 ML VIAL. ONE; +methylPREDNISolone ACETATE 40 MG/ML VIAL. ONE
== END | disposition home or self-care (01) ==
LOC: SURG 09:44
PROVIDERS: ATTEND Anesthesiology Pain Medicine
DX: M17.0 Bilateral primary osteoarthritis of knee (principal); M47.816 Spondylosis without myelopathy or radiculopathy, lumbar region; E11.9 Type 2 diabetes mellitus without complications; Z79.84 Long term (current) use of oral hypoglycemic drugs; Z79.899 Other long term (current) drug therapy
CPT/HCPCS: 20610; 77002; J1030; J2001; J3490

== ENCOUNTER → 2018-06-22 | Outpatient (CLI) | payer OTHER, MEDICARE ==
[~2018-06-22] MED LIST changes: +ALBU2.5V8 INH; -ALBU8.5H8 INH; -BUPIVACAINE MPF 0.25% 30 ML VIAL. ONE; +HYALURONATE SODIUM 20 MG/2 ML SYRINGE. ONE; -methylPREDNISolone ACETATE 40 MG/ML VIAL. ONE
== END | disposition home or self-care (01) ==
LOC: SURG 12:26
PROVIDERS: ATTEND Anesthesiology Pain Medicine
DX: M17.0 Bilateral primary osteoarthritis of knee (principal); E11.9 Type 2 diabetes mellitus without complications; Z87.01 Personal history of pneumonia (recurrent); M19.90 Unspecified osteoarthritis, unspecified site; Z87.19 Personal history of other diseases of the digestive system; Z90.49 Acquired absence of other specified parts of digestive tract; Z79.84 Long term (current) use of oral hypoglycemic drugs; Z79.899 Other long term (current) drug therapy
CPT/HCPCS: 20610; 77002; 82947; J2001; 20611

== ENCOUNTER → 2018-07-27 | Outpatient (CLI) | payer MEDICARE, OTHER | END | disposition home or self-care (01) | LOC: SURG 09:18 | PROVIDERS: ATTEND Anesthesiology Pain Medicine | DX: M17.0 Bilateral primary osteoarthritis of knee (principal); Z79.899 Other long term (current) drug therapy | CPT/HCPCS: 20610; 77002; J2001; 20611 ==